=== PATIENT | male | born 1990 ===

== ENCOUNTER 2017-08-27 05:25 | Emergency (ER) | payer SELFPAY ==
[2017-08-27 06:13] VITALS: BP 139/91
[2017-08-27 07:07] LABS: Hematocrit 51.7 % (35.5-45.6); Hemoglobin 17.3 gm/dl (11.8-15.2); Mean Corpuscular HGB Conc 33 % (32-34); Mean Corpuscular Hemoglobin 26 pg (28-32); Mean Corpuscular Volume 79 fl (84-94); Red Blood Count 6.53 M/mm3 (3.65-5.03); Red Cell Distribution Width 13.9 % (13.2-15.2); White Blood Count 2.5 K/mm3 (4.5-11.0)
[2017-08-27 07:49] LABS: Bilirubin,Urine NEG (Negative); Blood,Urine MOD (Negative); Ketones,Urine NEG (Negative); Leukocyte Esterase,Urine NEG (Negative); Mucus,Urine FEW /HPF; Nitrite,Urine NEG (Negative); Urobilinogen,Urine < 2.0 mg/dL (<2.0)
[2017-08-27 07:59] LABS: Protein,Urine >500 mg/dL (Negative)
[2017-08-27 08:35] LABS: Platelet Count 91 K/mm3 (140-440)
[2017-08-27 09:26] LABS: Basophils % (Manual) 0 % (0.0-1.8); Blastocytes % (Manual) 0 %; Eosinophils % (Manual) 0 % (0.0-4.3)
[2017-08-27 09:29] LABS: Large Platelets Few; Platelet Estimate Consistent w Auto; RBC Morphology Normal; Smudge Cells Few
[2017-08-27 09:33] LABS: Diff Status Complete
== END 2017-08-27 06:57 | disposition left against medical advice (07) ==
LOC: ED 05:25
DX: K64.9 Unspecified hemorrhoids (principal); K59.00 Constipation, unspecified; Z53.21 Procedure and treatment not carried out due to patient leaving prior to being seen by health care provider
CPT/HCPCS: 36415; 81001; 85007; 85025